=== PATIENT | male | born 1945 | race Caucasian/White ===

== ENCOUNTER 2017-03-24 09:46 | Emergency (ER) | payer MEDICARE, OTHER ==
[2017-03-24] MEDS ORDERED: Sodium Chloride 0.9% 10 ML Syringe FLUSH PRN (10:14)
--- NOTE | 2017-03-24 13:16 | EDM.PDOC ---
ED HPI GENERAL MEDICAL PROBLEM - General Chief Complaint: Upper Extremity Injury/Pain Stated Complaint: L SHOULDER BACK, ARM PAIN Time Seen by Provider: 03/24/17 10:01 Source of Information: Reports: Patient, RN Notes Reviewed - History of Present Illness INITIAL COMMENTS - FREE TEXT/NARRATIVE: 71-year-old male comes in with symptoms of left upper back pain, left shoulder discomfort on and off for about 2 weeks. Has been worse the last 2 or 3 days. He also had some burning discomfort down the left lower part of his chest. He states he does get relief if he puts his arm in certain positions and help support his arm in certain ways. He also does have history of hypertension insulin-dependent diabetes, heart murmur so he and his family are quite concerned about his heart as well. No major tightness across his chest. No nausea vomiting or diaphoresis. He does not feel short of breath. His blood pressure was high on arrival but he had not yet taken his morning meds. 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 Family wonders if maybe this constant repetitive driving may be stressing his arms, shoulder and back. Left Chest Pain Score (Numeric/FACES): 9 - Related Data Allergies Allergy/AdvReac Type Severity Reaction Status Date / Time Penicillins Allergy Cannot Verified 03/24/17 10:11 Remember [id number] Reductase Allergy Pain Verified 03/24/17 10:11 Inhibitor tentanus Allergy Swelling Uncoded 03/24/17 10:11 Home Meds: Home Meds Aspirin [Halfprin] 81 mg PO DAILY 03/24/17 [History] Insulin Aspart [NovoLOG] 35 units INJECT DAILY 03/24/17 [History] Insulin Aspart [NovoLOG] 40 unit INJECT BEDTIME 03/24/17 [History] Insulin Regular, Human [Novolin R] 18 units INJECT TID 03/24/17 [History] Isosorbide Mononitrate [Imdur] 30 mg PO DAILY 03/24/17 [History] Lisinopril 10 mg PO DAILY 03/24/17 [History] Metoprolol Tartrate 25 mg PO DAILY 03/24/17 [History] Omeprazole 0 mg PO DAILY 03/24/17 [History] Rosuvastatin [Crestor] 10 mg PO ASDIRECTED 03/24/17 [History] Past Medical History Cardiovascular History: Reports: High Cholesterol, Other (See Below) Other Cardiovascular History: "down under the right side of my heart has disease." Other Gastrointestinal History: hernia Genitourinary History: Reports: Renal Calculus Neurological History: Reports: Cerebral Palsy Endocrine/Metabolic History: Reports: Diabetes, Type II - Past Surgical History Other Musculoskeletal Surgeries/Procedures:: "laser knee surgery" Social & Family History - Family History Family Medical History: Noncontributory - Tobacco Use Smoking Status *Q: Never Smoker - Recreational Drug Use Recreational Drug Use: No Review of Systems - Review of Systems Review Of Systems: See Below Constitutional: Denies: Chills, Diaphoresis, Fever Eyes: Reports: No Symptoms Nose: Denies: No Symptoms Mouth/Throat: Denies: No Symptoms Respiratory: Reports: Cough (chronic, mostly nonproductive). Denies: Shortness of Breath, Wheezing, Pleuritic Chest Pain Cardiovascular: Reports: Chest Pain (he did have some burning discomfort of the left lateral chest wall area this morning, now better) GI/Abdominal: Denies: Abdominal Pain, Nausea, Vomiting Musculoskeletal: Reports: Shoulder Pain, Arm Pain, Back Pain. Denies: Leg Pain Neurological: Denies: Numbness, Tingling, Trouble Speaking, Weakness ED EXAM, GENERAL - Physical Exam Exam: See Below General Appearance: Alert, No Apparent Distress Eye Exam: Bilateral Eye: PERRL Throat/Mouth: Normal Inspection, Normal Oropharynx Head: Atraumatic. No: Facial Swelling Neck: Supple, Full Range of Motion Respiratory/Chest: No Respiratory Distress, Lungs Clear, Normal Breath Sounds, Chest Non-Tender Cardiovascular: Regular Rate, Rhythm, Systolic Murmur GI/Abdominal: Soft, Non-Tender Back Exam: Paraspinal Tenderness (there is tenderness just medial to the lower left scapula). No: Vertebral Tenderness Extremities: Normal Range of Motion, Arm Pain (he does have some tenderness of the left upper arm). No: Pedal Edema, Joint Swelling, Leg Pain, Increased Warmth, Redness Neurological: Alert, Oriented, No Motor/Sensory Deficits Skin Exam: Normal Color EKG INTERPRETATION EKG Date: 03/24/17 Rhythm: NSR Vance: Normal P-Wave: Present QRS: Normal ST-T: Normal Course - Vital Signs Last Recorded V/S: Last Vital Signs Temp 98.4 F 03/24/17 09:59 Pulse 64 03/24/17 10:55 Resp 19 03/24/17 10:55 BP 202/93 H 03/24/17 09:59 Pulse Ox 92 L 03/24/17 10:55 - Orders/Labs/Meds Orders: Active Orders 24 hr Category Date Time Status EKG 12 Lead [EKG Documentation Completion] [RC] STAT Care 03/24/17 10:14 Active Peripheral IV Care [RC] . DIRECTED Care 03/24/17 10:15 Active Chest 1V Frontal [CR] Stat Exams 03/24/17 10:14 Taken Sodium Chloride 0.9% [Saline Flush] Med 03/24/17 10:14 Active 10 ml FLUSH ASDIRECTED PRN Peripheral IV Insertion Adult [OM.PC] Stat Oth 03/24/17 10:14 Ordered Medication Orders Sodium Chloride (Saline Flush) 10 ml FLUSH ASDIRECTED PRN PRN Reason: Keep Vein Open Last Admin: 03/24/17 10:30 Dose: 10 ml Labs: Laboratory Tests 03/24/17 03/24/17 03/24/17 Range/Units 10:25 10:25 12:07 WBC 8.55 (4.23-9.07) K/mm3 RBC 6.17 H (4.63-6.08) M/mm3 Hgb 16.8 (13.7-17.5) gm/L Hct 49.5 (40.1-51.0) % MCV 80.2 (79.0-92.2) fl MCH 27.2 (25.7-32.2) pg MCHC 33.9 (32.2-35.5) g/dl RDW Std Deviation 41.1 (35.1-43.9) fL Plt Count 163 (163-337) K/mm3 MPV 11.9 (9.4-12.3) fl Neut % (Auto) 62.8 (34.0-67.9) % Lymph % (Auto) 22.3 (21.8-53.1) % [place] % (Auto) 10.6 (5.3-12.2) % Eos % (Auto) 2.5 (0.8-7.0) Baso % (Auto) 1.1 (0.1-1.2) % Neut # (Auto) 5.37 (1.78-5.38) K/mm3 Lymph # (Auto) 1.91 (1.32-3.57) K/mm3 [place] # (Auto) 0.91 H (0.30-0.82) K/mm3 Eos # (Auto) 0.21 (0.04-0.54) K/mm3 Baso # (Auto) 0.09 H (0.01-0.08) K/mm3 Manual Slide Review Normal smear Sodium 139 (136-145) mEq/L Potassium 3.9 (3.5-5.1) mEq/L Chloride 103 (98-107) mEq/L Carbon Dioxide 26 (21-32) mEq/L Anion Gap 13.9 (5-15) BUN 12 (7-18) mg/dL Creatinine 1.0 (0.7-1.3) mg/dL Est Cr Clr Drug Dosing 71.99 mL/min Estimated GFR (MDRD) > 60 (>60) mL/min BUN/Creatinine Ratio 12.0 L (14-18) Glucose 223 H (80-115) mg/dL Calcium 9.2 (8.5-10.1) mg/dL Total Bilirubin 0.8 (0.2-1.0) mg/dL AST 23 (15-37) U/L ALT 33 (16-63) U/L Alkaline Phosphatase 59 (46-116) U/L Troponin I < 0.017 < 0.017 (0.00-0.056) ng/mL Total Protein 8.0 (6.4-8.2) g/dl Albumin 3.9 (3.4-5.0) g/dl Globulin 4.1 gm/dL Albumin/Globulin Ratio 1.0 (1-2) Meds: Medications Generic Name Dose Route Start Last Admin Trade Name Freq PRN Reason Stop Dose Admin Sodium Chloride 10 ml 03/24/17 10:14 03/24/17 10:30 Saline Flush FLUSH 10 ml ASDIRECTED PRN Administration Keep Vein Open - Re-Assessments/Exams Free Text/Narrative Re-Assessment/Exam: 03/24/17 13:45 initial troponin and labs were normal, chest x-ray showed mild cardiomegaly slight pulmonary congestion. repeat troponin also normal. he is been resting fairly comfortably while here in the ED, blood pressure was high initially but he had not taken his morning meds. Once he did take his meds blood pressure did come down nicely. He is been in sinus rhythm with no ectopy. I'm going to set him up for a repeat echocardiogram. His last echocardiogram was about 2 or 3 years ago. He does have a systolic murmur, he is insulin-dependent diabetic and now having atypical chest pain which I do believe is mostly musculoskeletal. Discharge instructions as documented Departure - Departure Time of Disposition: 13:16 Disposition: Home, Self-Care 01 Clinical Impression: Atypical chest pain, Heart murmur - Discharge Information Instructions: Nonspecific Chest Pain Referrals: PCP,Not In Area [Primary Care Provider] - Forms: ED Department Discharge Additional Instructions: try avoid heavy lifting as best you can, continue current medications as prescribed, you may take Tylenol 2-3 times daily as needed for arm or upper back discomfort. echocardiogram early next week. Radiology department will call you Sunday with a time to get that done, see Dr. Littlejohn, Echo Tech for follow-up, next appointment available, call Dr. Littlejohn's office Sunday for appointment. This should work as a referral. notify ED Sunday if you need any help getting this appointment set up. Return to ED if symptoms worsening in any way as discussed. - My Orders Last 24 Hours: My Active Orders 03/24/17 10:14 EKG 12 Lead [EKG Documentation Completion] [RC] STAT Chest 1V Frontal [CR] Stat Sodium Chloride 0.9% [Saline Flush] 10 ml FLUSH ASDIRECTED PRN Peripheral IV Insertion Adult [OM.PC] Stat 03/24/17 10:15 Peripheral IV Care [RC] . DIRECTED - Assessment/Plan Last 24 Hours: My Active Orders 03/24/17 10:14 EKG 12 Lead [EKG Documentation Completion] [RC] STAT Chest 1V Frontal [CR] Stat Sodium Chloride 0.9% [Saline Flush] 10 ml FLUSH ASDIRECTED PRN Peripheral IV Insertion Adult [OM.PC] Stat 03/24/17 10:15 Peripheral IV Care [RC] . DIRECTED
[2017-03-24 13:44] VITALS: BP 141/82
--- NOTE | 2017-03-25 18:06 | CR ---
Chest: Frontal view of the chest was obtained. Comparison: No previous study. Heart size at the upper limits of normal. Upper mediastinum is within normal limits. Lungs are clear. Bony structures are grossly intact. Impression: 1. Nothing acute is identified on frontal chest x-ray. Diagnostic code #1
== END 2017-03-24 13:44 | disposition home or self-care (01) ==
LOC: JD.ED 09:46
DX: R07.89 Other chest pain (principal); R01.1 Cardiac murmur, unspecified; E11.9 Type 2 diabetes mellitus without complications; E78.00 Pure hypercholesterolemia, unspecified; Z88.0 Allergy status to penicillin; Z79.82 Long term (current) use of aspirin; Z79.4 Long term (current) use of insulin; Z79.899 Other long term (current) drug therapy; Z87.442 Personal history of urinary calculi
CPT/HCPCS: 36415; 71010; 80053; 84484; 85025; 93005; 99285; J7050; 99284

== ENCOUNTER 2023-12-11 14:26 | Emergency (ER) | payer MEDICARE, OTHER ==
[2023-12-11 17:45] LABS: BASOPHILS ABSOLUTE AUTO 0.1 K/mm3 (0.0-0.2); BASOPHILS PERCENT AUTO 0.5 % (0.0-1.0); EOSINOPHILS ABSOLUTE AUTO 0.2 K/mm3 (0.0-0.4); EOSINOPHILS PERCENT AUTO 1.5 % (0.0-6.0); HEMATOCRIT 37.6 % (42.0-52.0); HEMOGLOBIN 11.7 gm/dl (14.0-18.0); IMMATURE GRAN ABSOLUTE AUTO 0.07 K/mm3 (0.00-0.05); IMMATURE GRAN PERCENT AUTO 0.6 % (0.0-0.4); LYMPHOCYTES ABSOLUTE AUTO 1.1 K/mm3 (1.0-4.8); LYMPHOCYTES PERCENT AUTO 8.9 % (24.0-44.0); MEAN CORPUSCULAR HEMOGLOBIN 26.6 pg (28.0-32.0); MEAN CORPUSCULAR HGB CONC 31.1 g/dl (32.0-36.0); MEAN CORPUSCULAR VOLUME 85.5 fl (83.0-99.0); MEAN PLATELET VOLUME 11.9 fl (9.4-12.4); MONOCYTES ABSOLUTE AUTO 1.3 K/mm3 (0.0-0.8); MONOCYTES PERCENT AUTO 10.4 % (0.0-8.0); NEUTROPHILS ABSOLUTE AUTO 9.4 K/mm3 (1.8-7.7); NEUTROPHILS PERCENT AUTO 78.1 % (41.0-71.0); PLATELET COUNT,PLT 206 K/mm3 (150-400)
[2023-12-11 18:15] LABS: A/G RATIO 0.7 (1-2); ALBUMIN 2.9 g/dl (3.4-5.0); ANION GAP 12.3 (5-15); BILIRUBIN TOTAL 0.6 mg/dL (0.2-1.0); BUN/CREATININE RATIO 13.8 (14-18); CALCIUM 8.6 mg/dL (8.5-10.1); CREATININE 1.3 mg/dL (0.7-1.3); EST CRCL DRUG DOSING (CG) 49.91 mL/min; POTASSIUM,K 4.3 mEq/L (3.5-5.1); PROTEIN TOTAL,TP 6.8 g/dl (6.4-8.2)
[2023-12-11] MEDS: Doxycycline Monohydrate 100 MG Cap PO ONE (20:02)
[2023-12-11] MEDS: Furosemide 40 MG/4 ML VIAL IVPUSH ONE (20:02)
[2023-12-11 20:32] VITALS: BP 142/87; PULSE 104
== END 2023-12-11 20:30 | disposition home or self-care (01) ==
LOC: SUPCPDRO 14:26 → JD.ED 14:26
DX: I50.9 Heart failure, unspecified (principal); L03.116 Cellulitis of left lower limb; E11.9 Type 2 diabetes mellitus without complications; Z88.0 Allergy status to penicillin; Z88.7 Allergy status to serum and vaccine; Z88.8 Allergy status to other drugs, medicaments and biological substances; Z79.4 Long term (current) use of insulin; Z79.82 Long term (current) use of aspirin; Z79.899 Other long term (current) drug therapy
CPT/HCPCS: 36415; 71045; 80053; 83880; 85025; 93005; 96374; 99285; A9270; J1940